=== PATIENT | male | born 1975 | race African-American/Black ===

== ENCOUNTER 2022-07-28 14:37 | Emergency (ER) | payer BC, SELFPAY ==
--- NOTE | ~2022-07-28 | XR_ITS ---
EXAM: XR shoulder LT min 2V DATE: 07/28/2022 15:35 HISTORY: Injury moving basketball goal . COMPARISON: None available. FINDINGS: Normal mineralization. Comminuted fracture of the proximal left humeral head, with involve ment of the greater tuberosity. No lytic or blastic lesion. Joint spaces are maintained. No erosion o r periosteal change. Soft tissues within normal limits. IMPRESSION: Comminuted, nondisplaced fracture of the left humeral head. Reviewed, dictated and finalized at location K. EY ENGINE OPERATOR
--- NOTE | 2022-07-28 14:40 | ED.UPPEXIN ---
HPI - Extremity Injury (Upper) General Chief Complaint: Extremity Injury, Upper Stated Complaint: INJURED SHOULDER Time Seen by Provider: 07/28/22 14:40 Source: patient and RN notes reviewed History of Present Illness HPI narrative: Patient is a 46-year-old male who presents to the Urgent Care with complaints of left shoulder pain. Patient states that at 1:30 p.m. today he attempted to move a portable basketball hoop and had excruciating anterior left shoulder pain after falling backwards with the portable basketball hoop. Patient has kept it tied up with a jacket since the injury. Patient is not taking anything [id number] for his pain. No other acute complaints. No acute distress noted. Patient aware of plan of care. Some parts of this dictation were generated by voice recognition software and may contain typographical and/or grammatical inaccuracies. Related Data Home Medications Medication Instructions Recorded Confirmed No Home Medications 07/28/22 07/28/22 Allergies Allergy/AdvReac Type Severity Reaction Status Date / Time No Known Allergies Allergy Verified 07/28/22 15:27 Review of Systems Review of Systems: CONSTITUTIONAL: Denies fever, chills, or sweats. EYES: Denies visual changes, redness, or discharge. ENT: Denies rhinorrhea, congestion, sore throat, or otalgia. CARDIOVASCULAR: Denies chest pain, palpitations, or edema. RESPIRATORY: Denies cough or dyspnea. GASTROINTESTINAL: Denies abdominal pain, nausea, vomiting, or diarrhea. GENITOURINARY: Denies dysuria or hematuria. SKIN: Denies rash or itching. MUSCULOSKELETAL: Reports of left shoulder pain NEUROLOGIC: Denies headache, numbness, or weakness. All other systems reviewed are negative, except as documented in HPI. PMFSH Comments At the time of my signature, I reviewed and agree with the nursing past medical, surgical, social, and family history. There is no relevant family history pertinent to the patient complaint. Exam Narrative: GENERAL: This is a well-nourished, well-developed patient, in no apparent distress. HEAD: normocephalic, atraumatic. EYES: PERRL. Sclera clear/white. Vision is grossly intact. EARS: External ears normal NOSE: External nose normal with no obvious nasal discharge, nares without redness, no rhinorrhea. THROAT: Mucous membranes moist NECK: Neck supple SKIN: warm, intact with no suspicious lesions or rash, good texture and turgor. NEURO: awake, alert, and oriented to person, place and time. There were no obvious focal neurologic abnormalities. EXTREMITIES: Moderate anterior left and lateral shoulder tenderness. Range of motion to the left upper extremity not tested due to pain. Positive strong left radial pulse with capillary refill less than 2 seconds. Course Course Level of Care: Express Care Visit Vital Signs Vital signs: Vital Signs Temperature 98.8 F 07/28/22 15:26 Pulse Rate 98 07/28/22 15:26 Respiratory Rate 16 07/28/22 15:26 Blood Pressure 129/109 H 07/28/22 15:26 Pulse Oximetry 100 07/28/22 15:26 Temperature 98.8 F 07/28/22 15:27 Pulse Rate 98 07/28/22 15:27 Respiratory Rate 16 07/28/22 15:27 Blood Pressure 129/109 H 07/28/22 15:27 Pulse Oximetry 100 07/28/22 15:27 Reviewed- Patient is informed that they may have pre-hypertension or hypertension based on a blood pressure reading in the department. I recommend the patient call the primary care provider listed on their discharge instructions or a physician of their choice this week to arrange follow-up for further evaluation of possible pre-hypertension or hypertension. Transfer Transfered to: [facility] Transportation: Other (Private car, refusing EMS transfer) Transfer rationale: Humeral head fracture Accepting physician: Dr. Pardo [facility] - Extremity Injury (Upper) MDM Narrative Medical decision making narrative: Reviewed x-ray results with the patient. He is aware that he has a fracture of the humeral hea
[2022-07-28 15:26] VITALS: BP 129/109; PULSE 98; RESP 16; TEMP 37.1; O2SAT 100
[2022-07-28 15:27] VITALS: BP 129/109; PULSE 98; RESP 16; TEMP 37.1; O2SAT 100
== END 2022-07-28 16:00 | disposition short-term general hospital (02) ==
PROVIDERS: Emergency Provider Nurse Practitioner Family
DX: S42.292A Other displaced fracture of upper end of left humerus, initial encounter for closed fracture (principal); W18.39XA Other fall on same level, initial encounter
CPT/HCPCS: 73030; 99214; A4565; G0463

== ENCOUNTER 2022-07-28 16:16 | Emergency (ER) | payer BC, SELFPAY ==
[2022-07-28 16:19] VITALS: BP 139/98; PULSE 101; RESP 18; TEMP 37.3; O2SAT 100
--- NOTE | 2022-07-28 19:12 | ED.UPPEXIN ---
HPI - Extremity Injury (Upper) General Chief Complaint: Extremity Injury, Upper <ANAY Stinson Last Filed: 07/28/22 19:21> Stated Complaint: shoulder pain <ANAY Stinson Last Filed: 07/28/22 19:21> Time Seen by Provider: 07/28/22 18:43 <ANAY Stinson Last Filed: 07/28/22 19:21> Source: patient <ANAY Stinson Last Filed: 07/28/22 19:21> Mode of arrival: ambulatory <ANAY Stinson Last Filed: 07/28/22 19:21> Limitations: no limitations <ANAY Stinson Last Filed: 07/28/22 19:21> History of Present Illness HPI narrative: This is a 46-year-old male that presents to the emergency department for left shoulder pain after a fall today. Reports he was trying to put up a basketball hoop. It started to fall toward him so he backed away. He tripped and fell onto his left shoulder. He is unsure if he hit his head. He did not lose consciousness. Reports left shoulder pain with decreased range of motion. He is not on any blood thinners. Denies headache, neck pain, visual changes, vomiting, numbness, or weakness. <ANAY Stinson Last Filed: 07/28/22 19:21> Related Data Allergies/Adverse Reactions: Allergies Allergy/AdvReac Type Severity Reaction Status Date / Time No Known Allergies Allergy Verified 08/06/22 08:23 <ANAY Stinson Last Filed: 07/28/22 19:21> Review of Systems Review of Systems: CONSTITUTIONAL: Denies fever EYES: Denies visual changes GASTROINTESTINAL: Denies vomiting MUSCULOSKELETAL: Reports joint pain and myalgia. Denies back pain NEUROLOGIC: Denies headache, numbness, or weakness. <ANAY Stinson Last Filed: 07/28/22 19:21> All systems reviewed & are unremarkable except as noted in HPI and below <ANAY Stinson Last Filed: 07/28/22 19:21> [facility] Past Medical History Medical History: Medical History (Updated 08/06/22 @ 11:57 by EARNESTINE Jennings) Fracture of proximal end of left humerus Hypertension Sleep apnea <Fabiola Duron PA-C - Last Filed: 07/28/22 19:21> Surgical History Surgical History: Surgical History (Updated 07/31/22 @ 09:23 by Jaci Grigsby MA) Hx of Achilles tendon repair <Fabiola Duron PA-C - Last Filed: 07/28/22 19:21> Social History Social History: Social History (Updated 07/31/22 @ 09:23 by Jaci Grigsby MA) Smoking packs per day: 0.5 Smoking cigarettes per day: 10.0 Years smoked: 20 Smoking pack-years: 10.00 Smoking status: Current every day smoker Tobacco type: cigarettes Alcohol intake: current Drinks per week: 14 Substance use: never Substance use type: does not use Lack of Transportation: No Lack of Food: Never True Current Housing: I Have Housing Concerned About Future Housing: No Difficulty Paying Gas/Electric Bills: No Difficulty Paying for Meds: No Currently Unemployed: No Education: Associate Degree Difficulty w/ Childcare or Family Care: No Spiritual care concerns: No <Fabiola Duron PA-C - Last Filed: 07/28/22 19:21> Exam Narrative: GENERAL: Well-appearing, well-nourished, and in no acute distress. HEAD: Normocephalic, atraumatic. EYES: EOMI. ENT: Mucous membranes moist. Oropharynx without tonsillar hypertrophy exudate or other lesions. NECK: Supple. No adenopathy or masses. No midline cervical spine tenderness CHEST: Clear to auscultation. No respiratory distress. No wheezes rales or rhonchi HEART: Regular rate and rhythm. No murmur heard. Normal peripheral pulses. ABDOMEN: Soft, nontender, nondistended, normal active bowel sounds. EXTREMITIES: Normal range of motion, except decreased active ROM in the shoulder shoulder. No obvious deformity. Normal radial pulse. Normal sensation SKIN: Warm, dry, no rash. NEURO: No focal deficits. Alert and oriented x3. Cranial nerves II through XII grossly intact. Normal gait PSYCH: Normal mood and affe
[2022-07-28 19:34] VITALS: BP 139/104; PULSE 97; RESP 18; O2SAT 97
== END 2022-07-28 19:34 | disposition home or self-care (01) ==
PROVIDERS: Emergency Provider Emergency Medicine
DX: S42.295A Other nondisplaced fracture of upper end of left humerus, initial encounter for closed fracture (principal); F17.200 Nicotine dependence, unspecified, uncomplicated; W01.0XXA Fall on same level from slipping, tripping and stumbling without subsequent striking against object, initial encounter
CPT/HCPCS: 99284

== ENCOUNTER 2022-08-06 00:58 | Day surgery (SDC) | payer BC, SELFPAY ==
[2022-07-31 15:06] VITALS: BMI 25.8
--- NOTE | 2022-07-31 15:10 | PC.NURSE ---
Report to the Outpatient Waiting Room, entrance under the green pavilion located off [facility], at time 1200 on date 08/06/22. Planned Procedure Time: 1400. Time changes happen often and if your time is changed the preop area will call you the afternoon before. - You and your visitor will be asked to self-screen and do not enter if you have any COVID symptoms. - We encourage only one visitor and NO visitors under age 16 are allowed at this time. Your visitor will receive communication by the phone number that is given day of service. - The patient visitor is requested to social distance or may leave the building when not with patient due to restrictions. - A mask is OPTIONAL within the hospital. Patients may have clear liquids (water, carbonated beverages, clear teas, apple juice) until 3 hours prior to surgery with a maximum of 20 ounces. - No food from midnight until time of surgery Take the following medications with a SIP of water the morning of surgery: PAIN PILL IF NEEDED Medications to discontinue per physician: N/A Date to take last dose: N/A Please no make-up, nail malian, hairspray, perfume, deodorant, or body powder the day of surgery. No jewelry (including any body piercings) or valuables the day of surgery, leave them at home. Please take a shower or bath the night before, or the morning of, surgery with an antibacterial soap. Wear comfortable, loose fitting clothing. - Jewelry must be removed prior to entering the operating room. Rings and piercings that are not removed may be cut off. - The hospital will not accept responsibility for valuables. - Please leave all valuables, including medications, at home the day of surgery. If you are going home after surgery, a licensed driver guard must drive you home. - NO public transportation without another adult. - We recommend that an adult stay with you for 24 hours following discharge. - We also recommend that you do not drive, make important decision, drink alcoholic beverages, or take any drugs that were not prescribed by your health care provider for at least 24 hours after your discharge time. Follow any additional instructions given to you from your surgeon. If you or anyone in your household have experienced Covid symptoms in the past week, please notify your surgeon or the nurse liaison at the phone number below for possible testing. Telephone instructions given to PT - TRAY MILIAN and asked if any additional questions and then verbalized understanding. Patient advised to call surgeon office or pre surgery nurse liaison [phone] if any additional questions.
--- NOTE | 2022-08-05 14:14 | WPDANESEPPF ---
Anes - Initial Pre Proc Eval Procedure: Operation Date: 08/06/22 14:00 Proposed Procedures p Open Reduction Internal Fixation Left Proximal Humerus - Moises Meza MD Date/Time: 08/05/22 14:14 Surgeon: Moises Meza MD Pre Op Diagnosis: proximal humerus fx left shoulder Patient Data Age: 46 Gender: M Height: 1.73 m Weight: 77.11 kg Allergies Allergy/AdvReac Type Severity Reaction Status Date / Time No Known Allergies Allergy Verified 08/06/22 08:23 Home Medications Medication Instructions Recorded Confirmed Type oxycodone-acetaminophen 5 mg-325 1 - 2 tablet PO Q4-6H PRN pain #30 07/31/22 08/06/22 Rx mg tablet (Percocet) tabs Patient hx anesthesia problems: none Family hx anesthesia problems: none Results Review: All pre-operative results and documents have been reviewed as part of the pre-operative evaluation. [facility] Past Medical History Medical History (Updated 08/05/22 @ 15:52 by Moises Meza MD) Fracture of proximal end of left humerus Hypertension Sleep apnea Surgical History Surgical History (Updated 07/31/22 @ 09:23 by Jaci Grigsby MA) Hx of Achilles tendon repair Social History Social History (Updated 07/31/22 @ 09:23 by Jaci Grigsby MA) Smoking packs per day: 0.5 Smoking cigarettes per day: 10.0 Years smoked: 20 Smoking pack-years: 10.00 Smoking status: Current every day smoker Tobacco type: cigarettes Alcohol intake: current Drinks per week: 14 Substance use: never Substance use type: does not use Lack of Transportation: No Lack of Food: Never True Current Housing: I Have Housing Concerned About Future Housing: No Difficulty Paying Gas/Electric Bills: No Difficulty Paying for Meds: No Currently Unemployed: No Education: Associate Degree Difficulty w/ Childcare or Family Care: No Living arrangements: with family Spiritual care concerns: No Anes - Eval Final PreProcedure Day of Procedure 08/05/22 14:14 Patient weight: normal Heart: regular rate and rhythm Lungs: clear to auscultation and normal air movement Airway: Mallampati scale class II Neurological: alert and oriented Last oral intake: >/= 8 hours ASA classification: II Emergent: no Anesthetic plan: proceed Anesthesia type and monitoring: general ETT Results Review: All pre-operative results and documents have been reviewed as part of the pre-operative evaluation. Informed Consent: The patient's anesthetic plan and its attendant risks and benefits were discussed with the patient/family/POA. Questions were solicited and answers provided to the satisfaction of the patient/family/POA.
--- NOTE | 2022-08-05 14:15 | WPDANESPNB ---
Anes - Peripheral Nerve Block Date/Time: 08/05/22 14:15 I have discussed with the patient/family/POA the placement of a peripheral nerve block for post-operative pain management, including associated risks, benefits, complications, and side effects. Alternative methods of post-operative analgesia were detailed. Questions were solicited and answers provided to the satisfaction of the patient/family/POA. Time-Out: A pre-procedural Time-Out was completed immediately before starting the procedure and confirmed: Patient Identification, Site, Procedure, Patient Position and the Availability of Requisite Equipment. Clinical Indications: Acute post-operative pain management requested by the operative surgeon. Nerve Block Insertion Note Anes-nerve block: supraclavicular left Patient position: supine Skin prep: chlorhexidine Needle: 22 gauge, stimulating, insulated echogenic needle. Needle length: 80 mm Technique: ultrasound (in plane) Injectate: bupivacaine 0.25% with epi 5 mcg/ml (20cc) Observations: tolerated well Complications: none Procedure start time:: 1025 Procedure end time:: 1030
[2022-08-06] VITALS (10 sets, daily range): BP systolic 122–139; BP diastolic 82–95; PULSE 62–89; RESP 12–20; TEMP 36.2–37; O2SAT 97–100
--- NOTE | ~2022-08-06 | XR_ITS ---
EXAMINATION: XR surgery orthopedic DATE: 08/06/2022 13:41 INDICATION: Fracture of proximal left humerus. TECHNIQUE: 6 intraoperative fluoroscopic views of left shoulder were obtained. I was not present. Flu oroscopy exposure time was 87 seconds. COMPARISON: Left shoulder radiograph 07/28/2022 FINDINGS: There is a comminuted fracture of proximal left humerus involving the surgical neck and gre ater tuberosity. Images demonstrate open reduction internal fixation with lateral plate and screws. IMPRESSION: 1. Comminuted fracture of proximal left humerus status post open reduction internal fixation. Reviewed, dictated and finalized at location A. S SALESMAN IMPRESSION: 1. Comminuted fracture of proximal left humerus status post open reduction inte rnal fixation.
[2022-08-06] MEDS: ACETAMINOPHEN 500 MG TABLET 1000 MG PO (08:21)
[2022-08-06] MEDS: LACTATED RINGERS 1,000 ML 30 ML IV CONT ×3 (08:30→15:13)
[2022-08-06] MEDS: KETOROLAC 15 MG/ML VIAL (*BKC) IV PUSH (08:34)
--- NOTE | 2022-08-06 08:37 | ECG_ITS ---
Measurements Intervals [place] Rate: 77 P: 70 GA: 215 QRS: 34 QRSD: 84 T: -12 QT: 370 QTc: 420 Interpretive Statements SINUS RHYTHM WITH FIRST DEGREE AV BLOCK VOLTAGE CRITERIA FOR LVH NONSPECIFIC ST & T-WAVE ABNORMALITY- INFERIOR LEADS BORDERLINE ECG NO PREVIOUS ECG AVAILABLE FOR COMPARISON Electronically Signed On 08-06-2022 9:02:50 CENTRAL STERILE TECH by Felix Mercedes D.O.
--- NOTE | 2022-08-06 10:02 | WPDHPUPDATE1 ---
History and Physical Update Update Date/Time: 08/06/22 10:02 History and Physical has been reviewed, including an updated exam of the patient. There are NO changes in the patient's condition. Risks, benefits, and alternatives have been discussed and questions answered. Patient agrees to proceed with procedure.
[2022-08-06] MEDS: ceFAZolin 2 GM/D5W 50 ML 2 GM/50 ML BAG IVPB (10:37)
--- NOTE | 2022-08-06 14:10 | W.PM.PROC2 ---
Procedure Note - Detailed Date of Procedure 08/06/22 Pre-op Diagnosis Three-part displaced proximal humerus fracture, left shoulder. Post-op Diagnosis Same Procedure Performed ORIF left proximal humerus fracture. Surgeon Moises Meza MD [employer] Salesperson RAJESH Francis Anesthesia General Description of Procedure Preoperative antibiotics were given. A general anesthetic was administered. Patient was carefully placed in the beach chair position. The head and neck were carefully positioned. Biplanar fluoroscopy images were confirmed. Machine was brought in from the head of the table on the same side. The shoulder was prepped and draped in the usual sterile fashion. The articulating arm awan was used. A longitudinal incision was created at the anterior aspect of the shoulder and the deltopectoral groove was exposed. Patient demonstrated significant muscular hypertrophy of the anterior deltoid and pectoralis. The cephalic vein was preserved and retracted medially. The fracture was identified after clearing adhesions under the subdeltoid bursa. Early callus and hematoma debris were cleared and the fracture was carefully analyzed. The greater tuberosity split was captured with sutures and reduced. Biceps tendon was identified. It was left insight to. Provisional fixation was obtained with K-wires. The plate positioning was confirmed with the central pin. The oblong distal compression screw was placed and the plate was fine tuned. Biplanar fluoroscopy was used throughout the procedure to confirm anatomic reduction and appropriate placement of the implants. The Halle Alps plate was placed with the lower design. The calcar screw was placed 1st with excellent purchase. The remaining proximal pegs were used. Two additional locking screws were placed distal. The tuberosity fragments were reduced with multiple 2. Ethibond sutures. Provisional reduction was performed initially before plate application converting the 3 part fracture to a 2 part fracture. At the conclusion of the procedure 3 additional sutures were placed into the rotator cuff superior and posteriorly and this was tied to the plate for additional stability and control of the greater tuberosity fragment. The wound was copiously irrigated throughout the procedure. Meticulous hemostasis was maintained. Estimated blood loss 200 mL. Deep tissues were closed with 2-0 Vicryl suture followed by running 3-0 Stratafix suture and 4-0 Stratafix suture. Steri-Strips were placed on the skin. The patient was placed in a sling and extubated. Brought to the recovery room in stable condition. There were no complications. Implants Halle Alps proximal humerus plate. Distal plate 3 holes. Estimated Blood Loss 200 Complications No immediate complications Condition Stable Disposition PACU [facility] Billing Surgery - Charge Forward: Surgery Billing
--- NOTE | 2022-08-06 16:03 | SUR.PHASEII ---
ABLE TO WALK INDEPENDENTLY BUT FEELS WOOZY. WILL KEEP PATIENT HERE 30 MIN. LONGER TO WAKE UP MORE.
--- NOTE | 2022-08-06 16:46 | SUR.PHASEII ---
CORRECTION: IV BAG CHARTED AT 1513 NOT GIVEN.
== END 2022-08-06 16:30 | disposition home or self-care (01) ==
PROVIDERS: Visit Provider Orthopaedic Surgery
PROC: (CPT 23615; principal; 2022-08-06 10:30)
DX: S42.292A Other displaced fracture of upper end of left humerus, initial encounter for closed fracture (principal); W01.0XXA Fall on same level from slipping, tripping and stumbling without subsequent striking against object, initial encounter; I10 Essential (primary) hypertension; F17.210 Nicotine dependence, cigarettes, uncomplicated
CPT/HCPCS: 23615; 93005; 99199; A4565; A9270; C1713; J0330; J0690; J1885; J2250; J2270; J2405; J2704; J7120

== ENCOUNTER 2023-06-04 08:54 | Outpatient (CLI) | payer BC, OTHER, SELFPAY ==
[2023-06-04 10:49] LABS: Alanine Aminotransferase 38 U/L (6-50); Aspartate Amino Transferase 41 U/L (17-59)
== END 2023-06-04 08:55 | disposition home or self-care (01) ==
LOC: ANHLAB 08:55
PROVIDERS: PCP Family Medicine; Visit Provider Podiatrist Foot & Ankle Surgery
DX: B35.1 Tinea unguium (principal)
CPT/HCPCS: 36415; 84450; 84460

== ENCOUNTER 2024-05-20 02:43 | Day surgery (SDC) | payer BC, SELFPAY ==
[2024-05-19 09:49] VITALS: BMI 25.8
--- NOTE | 2024-05-19 10:04 | PC.NURSE ---
Report to the Outpatient Waiting Room, entrance under the green pavilion located off [facility], at time _1030 on date _05/20/24 . Planned Procedure Time: __1230 .? Time changes happen often and if your time is changed the preop area will call you the afternoon before. - You and your visitor will be asked to self-screen and do not enter if you have any COVID symptoms. Please call surgeon if you need to reschedule. - A mask is optional within the hospital at this time. Patients may have clear liquids (water, carbonated beverages, clear teas, apple juice) until 3 hours prior to surgery with a maximum of 20 ounces. - No food from midnight until time of surgery and no smoking - Infants may have breast milk until 4 hours before surgery, formula 6 hours prior to surgery. - Children will be allowed to drink immediately following surgery.? If applicable, please bring a bottle or sippy cup to assist with drinking. Juice, water, soda, and popsicles are readily available.? For infants on formula, please bring formula the day of surgery.? Pacifiers are allowed. Take only the following medications with a SIP of water on the morning of surgery: __N/A DO NOT STOP ANY OF YOUR OTHER PRESCRIPTION MEDICATIONS PRIOR TO SURGERY EXCEPT THE FOLLOWING Medications to discontinue per physician N/A Date to take last dose__N/A Please no make-up, nail south korean, hairspray, perfume, deodorant, or body powder the day of surgery.? No jewelry (including any body piercings) or valuables the day of surgery, leave them at home.? Please take a shower or bath the night before, or the morning of, surgery with an antibacterial soap.? Wear comfortable, loose fitting clothing.? Children are encouraged to wear pajamas. - Jewelry must be removed prior to entering the operating room.? Rings and piercings that are not removed may be cut off. - The hospital will not accept responsibility for valuables.? - Please leave all valuables, including medications, at home the day of surgery. If you are going home after surgery, a licensed marine engine driver must drive you home.? - NO public transportation without another adult if you receive anesthesia. - We recommend that an adult stay with you for 24 hours following discharge. - We also recommend that you do not drive, make important decision, drink alcoholic beverages, or take any drugs that were not prescribed by your health care provider for at least 24 hours after your discharge time. For Pediatric surgeries, we recommend two adults accompany the child home. Follow any additional instructions given to you from your surgeon. Telephone instructions given to __Tano and asked if any additional questions and then verbalized understanding. Patient advised to call surgeon office or pre surgery nurse liaison [phone] if any additional questions.
[2024-05-20] VITALS (8 sets, daily range): BP systolic 140–163; BP diastolic 95–102; PULSE 61–85; RESP 12–22; TEMP 36.2–36.5; O2SAT 96–100
--- NOTE | 2024-05-20 07:25 | WPDHPUPDATE1 ---
History and Physical Update Update Date/Time: 05/20/24 07:25 History and Physical has been reviewed, including an updated exam of the patient. There are NO changes in the patient's condition. Risks, benefits, and alternatives have been discussed and questions answered. Patient agrees to proceed with procedure.
[2024-05-20] MEDS: ACETAMINOPHEN 500 MG TABLET 1000 MG PO (10:49)
[2024-05-20] MEDS: LACTATED RINGERS 1,000 ML 30 ML IV CONT (11:15)
[2024-05-20] MEDS: KETOROLAC 15 MG/ML VIAL (*BKC) IV PUSH (11:17)
--- NOTE | 2024-05-20 12:46 | WPDANESEPPF ---
Anes - Initial Pre Proc Eval Procedure: Operation Date: 05/20/24 12:30 Proposed Procedures p Left Shoulder Arthroscopic Subacromial Decompression with Debridement - Moises Meza MD Date/Time: 05/20/24 12:46 Surgeon: Moises Meza MD Pre Op Diagnosis: left shoulder impingement syndrome Patient Data Age: 48 Gender: M Height: 1.73 m Weight: 76.6 kg Last Vital Signs Temp 97.7 F 05/20/24 10:52 Pulse 63 05/20/24 10:52 Resp 16 05/20/24 10:52 BP 146/95 H 05/20/24 10:52 Pulse Ox 100 05/20/24 10:52 O2 Del Method Room Air 05/20/24 10:52 Allergies Allergy/AdvReac Type Severity Reaction Status Date / Time No Known Allergies Allergy Verified 05/20/24 10:38 Home Medications Medication Instructions Recorded Confirmed Type No Home Medications 05/14/24 05/19/24 History Patient hx anesthesia problems: none Family hx anesthesia problems: none Results Review: All pre-operative results and documents have been reviewed as part of the pre-operative evaluation. [facility] Past Medical History Medical History Fracture of proximal end of left humerus Hypertension Sleep apnea Surgical History Surgical History Hx of Achilles tendon repair Family History Family History Mother Hypertension Cerebrovascular accident Diabetes mellitus Acute myocardial infarction Heart disease Father Carcinoma of colon Hypertension Social History Social History Social History: Smoking packs per day: 0.5 Smoking cigarettes per day: 10.0 Years smoked: 20 Smoking pack-years: 10.00 Smoking status: Current every day smoker Tobacco type: cigarettes Alcohol intake: current Drinks per week: 5 Substance use: never Substance use type: does not use Do You Feel Safe in your Home?: Yes Lack of Transportation: No Lack of Food: Never True Current Housing: I Have Housing Concerned About Future Housing: No Difficulty Paying Gas/Electric Bills: No Difficulty Paying for Meds: No Currently Unemployed: No Education: Associate Degree Difficulty w/ Childcare or Family Care: No Living arrangements: with family Occupation/Education: occupation Gender identity (if verbalized by the patient): Male Sexual Orientation (if Verbalized by the Patient): Straight or Heterosexual Spiritual care concerns: No Anes - Eval Final PreProcedure Day of Procedure 05/20/24 12:46 Patient weight: normal Heart: regular rate and rhythm Lungs: clear to auscultation Airway: Mallampati scale class II Neurological: alert and oriented Last oral intake: >/= 8 hours ASA classification: III Emergent: no Anesthetic plan: proceed Anesthesia type and monitoring: general ETT and standard monitoring Results Review: All pre-operative results and documents have been reviewed as part of the pre-operative evaluation. HTN, KYLE on CPAP w setting 12, pt smokes 1/2 ppd for 20 years. Active athlete, no cp or sob. Informed Consent: The patient's anesthetic plan and its attendant risks and benefits were discussed with the patient/family/POA. Questions were solicited and answers provided to the satisfaction of the patient/family/POA.
[2024-05-20] MEDS: ceFAZolin 2 GM/D5W 50 ML 2 GM/50 ML BAG IVPB (12:52)
[2024-05-20] MEDS: BUPIVACAINE/EPINEPHRINE 0.5% 50 ML VIAL 30 ML INFILTRATE (14:20)
[2024-05-20] MEDS: hydrALAZINE HCL 20 MG/ML VIAL 5 MG IV PUSH (15:28)
--- NOTE | 2024-05-20 16:34 | W.PM.PROC2 ---
Procedure Note - Detailed Date of Procedure 05/20/24 Pre-op Diagnosis Left shoulder impingement syndrome s/p ORIF proximal humerus fracture. Post-op Diagnosis Same Procedure Performed Left shoulder arthroscopic limited debridement with subacromial decompression. Surgeon Moises Meza MD [employer] Vivien Trinidad PA-C Anesthesia General and Regional (Interscalene block) Indications Painful impingement with prominent greater tuberosity bone. Findings Extensive subacromial bursa scar tissue excised. The rotator cuff showed mild bursal fraying. Only minimal bony prominence palpable more posteriorly. The superficial bursal supraspinatus was debrided as well as the extensive bursal scar tissue. The articular side rotator cuff was healthy. Modest acromioplasty was performed. Description of Procedure Preoperative antibiotics were given. The patient was brought to the operating room. Careful positioning in the beach chair was accomplished. The head neck were carefully positioned. A small bump was placed under the shoulder. The shoulder was prepped and draped in the usual sterile fashion. Examination under anesthesia performed. No gross contracture noted. Standard posterior and anterior arthroscopic portals were established. The glenohumeral joint was healthy. The biceps had evidence of anatomic variants with some attachment to the superior capsule. There was no evidence of significant SLAP tear or pathology. There was minimal labral fraying anterior and posterior. The subscapularis and rotator cuff appeared healthy and normal. Attention was turned to the subacromial space. Bursa was very prominent thickened and scarred down to the proximal lateral greater tuberosity. A complete bursectomy was performed. [The Ethibond sutures were partially visible in the posterior greater trochanter and appeared quite well healed. The bony prominence noted on radiographs was not readily palpable and the overall contour of the greater tuberosity was fairly normal in appearance. There was mild fraying of the anterior bursal supraspinatus. This was lightly debrided. The acromion was clearly visualized. No definite spur but given the location of the anterolateral acromion adjacent to the partial-thickness the bursal side fraying, it was elected to proceed with a modest anterolateral acromioplasty. Loose bone fragments were carefully irrigated from the joint. The arthroscopic instruments were removed. The wounds were closed with interrupted 3-0 Monocryl suture followed by Steri-Strips. A sterile dressing was applied with a sling. The patient was extubated and brought to the recovery room in stable condition. There were no complications. Estimated Blood Loss 10 Drains No Packing No Pathology None sent Complications No immediate complications Condition Stable Disposition PACU [facility] Billing Surgery - Charge Forward: Surgery Billing
== END 2024-05-20 16:25 | disposition home or self-care (01) ==
PROVIDERS: PCP Family Medicine; Visit Provider Orthopaedic Surgery
PROC: (CPT 29805; principal; 2024-05-20 12:30)
DX: M75.42 Impingement syndrome of left shoulder (principal); I10 Essential (primary) hypertension; G47.30 Sleep apnea, unspecified; F17.210 Nicotine dependence, cigarettes, uncomplicated; Z98.890 Other specified postprocedural states; Z87.81 Personal history of (healed) traumatic fracture; Z80.0 Family history of malignant neoplasm of digestive organs; Z82.49 Family history of ischemic heart disease and other diseases of the circulatory system
CPT/HCPCS: 29822; A4565; A9270; J0171; J0360; J0690; J1170; J1885; J2250; J2270; J3010; J7120